=== PATIENT | male | born 1955 | race Caucasian/White ===

== ENCOUNTER → 2016-08-08 | Outpatient (CLI) | payer BC ==
[~2016-08-08] MED LIST: LIPITOR40 MG PO; MOBIC PO
--- NOTE | ~2016-08-08 | MR17 ---
[facility] A Service of [facility] & [facility] RADIOLOGY TEXT RESULTS PATIENT: CAIT SCHUMACHER LOCATION: [facility] : 57 UNIT #: [id number] AGE: [address]: Curtis Atkinson II, MD SEX: M ORDER DR: [id number] [facility] [address] [place], [place] [address] [id number] MR#: [id number] Acc #: [id number] NAME: CAIT SCHUMACHER : 1955 SEX: M STUDY DATE/TIME: 08/08/2016 17:22 UNIT: [facility] ROOM: STUDY DESCRIPTION: MR Brain WWo Contrast Attending Physician: Curtis Atkinson II., M.D. Referring Physician: Curtis Atkinson II., M.D. Ordering Physician: Curtis Atkinson II., M.D. Primary Care Physician: Vladimir Hussein M.D. [facility] REPORT This report is preliminary unless electronic signature is present. EXAM Brain MRI with and without contrast 08/08/2016 HISTORY Recent stroke 03/27/2016 with memory loss since then. TECHNIQUE Multiplanar imaging of the brain was performed with and without contrast. 14 mL of MultiHance was used. COMPARISON STUDIES The examination is compared to a previous study from 04/12/2016 FINDINGS The left anterior thalamic infarct noted on the previous scan has matured since that time. There is no focal encephalomalacia at this site measuring approximately 1.5 cm in diameter. No new infarcts are seen. Ventricular size is normal. No midline shift is noted. No mass lesions are seen. After contrast administration no abnormal enhancement is noted. Extraaxial structures are unremarkable. IMPRESSION Maturing infarct left anterior thalamus. No new lesions are seen since the previous scan. Dictated by... Aamir Larose M.D. THIS IS AN ELECTRONICALLY VERIFIED REPORT Aamir Larose M.D. at 08/10/2016 9:51 AM Lazara TD: 08/09/2016 17:38 [facility] A Service of [facility] RADIOLOGY TEXT RESULTS PATIENT: CAIT SCHUMACHER LOCATION: [facility] : 57 UNIT #: [id number] AGE: [address]: Curtis Atkinson II, MD SEX: M ORDER DR: UZIEL #: [id number] [facility] REPORT Page 1 of 1 COPY
[2016-08-08 17:16] LABS: POC - CREATININE 0.87 mg/dL (0.64-1.27); POC - GFR >60.0 mL/min (>60)
== END | disposition home or self-care (01) ==
LOC: CMRI 16:30
PROVIDERS: Psychiatry & Neurology Neurology
DX: R41.0 Disorientation, unspecified (principal)
CPT/HCPCS: 70553; 82565; A9577